=== PATIENT | male | born 1995 | race African-American/Black ===

== ENCOUNTER 2021-02-19 11:49 | Emergency (ER) | payer OTHER, SELFPAY | END 2021-02-19 12:20 | disposition home or self-care (01) | LOC: CSHERS 11:49 | DX: S70.311A Abrasion, right thigh, initial encounter (principal); W86.8XXA Exposure to other electric current, initial encounter | CPT/HCPCS: 99283 ==

== ENCOUNTER 2024-12-09 22:23 | Emergency (ER) | payer OTHER, SELFPAY ==
[2024-12-09 23:07] LABS: #Basophils 0.03 10x3/uL (0.0-0.2); #Eosinophils 0.09 10x3/uL (0.0-0.5); #Monocytes 0.31 10x3/uL (0.0-1.1); #Neutrophils 4.04 10x3/uL (1.5-8.4); %Basophils 0.6 % (0.0-2.0); %Eosinophils 1.7 % (0.0-6.0); %Lymphocytes 15.5 % (18.0-47.0); %Monocytes 5.8 % (0.0-10.0); %Neutrophils 76.2 % (40.0-75.0); Hematocrit 41.1 % (38.8-50.0); Hemoglobin 14.5 g/dL (13.5-17.5); Mean Corpuscular Hemoglobin 28.4 pg (27.0-33.0); Mean Corpuscular Volume 80.4 fL (81.2-95.1); Platelet Count 305 10x3/uL (150-450); Red Blood Cell (RBC) Count 5.11 10x6/uL (4.32-5.72); White Blood Cell (WBC) Count 5.30 10x3/uL (3.5-10.5)
[2024-12-09 23:22] LABS: Acetaminophen Less than 10 mcg/mL (Less than 10); Salicylate Less than 8.0 mg/dL (Less than 8.0)
[2024-12-09 23:23] LABS: ALT (SGPT) 26 U/L (Less than 45); AST (SGOT) 27 U/L (11-34); Albumin 5.1 g/dL (3.1-4.5); Alkaline Phosphatase 36 U/L (40-110); Anion Gap 15 mmol/L (10-20); BUN (Urea Nitrogen) 12 mg/dL (8.9-20.6); Bilirubin, Total 0.7 mg/dL (0.3-1.2); CK (CPK) 338 U/L (30-200); Calc. Creatinine Clearance 0 mL/min (70-130); Calcium 10.1 mg/dL (7.8-10.44); Carbon Dioxide 24 mmol/L (22-29); Chloride 102 mmol/L (98-107); Globulin 2.6 g/dL (2.4-3.5); Glucose 139 mg/dL (70-105); Potassium 4.0 mmol/L (3.5-5.1); Sodium 137 mmol/L (136-145)
[2024-12-09 23:28] LABS: Cocaine Metabolite Screen Negative (Negative); THC/Cannabinoid Screen PRELIM POSITIVE (Negative); Tricyclic Screen Negative (Negative)
== END 2024-12-10 04:54 | disposition home or self-care (01) ==
LOC: CSHERS 22:23
DX: N17.9 Acute kidney failure, unspecified (principal); R41.82 Altered mental status, unspecified; F15.129 Other stimulant abuse with intoxication, unspecified
CPT/HCPCS: 70450; 80053; 80306; 80307; 82550; 85025; 93005; 96361; 96374; J2060